=== PATIENT | female | born 1975 | race Caucasian/White ===

== ENCOUNTER → 2022-12-08 | Day surgery (SDC) | payer OTHER ==
[~2022-12-08] MED LIST: AMLODIPINE BESY10 MG PO; FENTANYL CITRATE/PF 100MCG/2 ML INJ ONE; HYOSCYAMINE SULFATE 0.5 MG/ML INJ ONE; LIDOCAINE HCL 2% LOCAL INJ 5 ML SDV VIAL INJ ONE; LOSARTAN POTAS100 MG PO; METFORMIN HCL500 M2 PO; MIDAZOLAM HCL 2 MG/2 ML VIAL ONE
[2022-12-08 10:50] VITALS: BP 118/88
== END | disposition home or self-care (01) ==
LOC: OR 08:28
PROVIDERS: ATTEND Internal Medicine Gastroenterology
DX: K63.89 Other specified diseases of intestine (principal); K62.1 Rectal polyp; K64.8 Other hemorrhoids; Z98.84 Bariatric surgery status; Z71.3 Dietary counseling and surveillance; I10 Essential (primary) hypertension; Z71.89 Other specified counseling; E78.00 Pure hypercholesterolemia, unspecified; E11.9 Type 2 diabetes mellitus without complications; Z01.810 Encounter for preprocedural cardiovascular examination; Z79.84 Long term (current) use of oral hypoglycemic drugs; Z79.899 Other long term (current) drug therapy; Z68.41 Body mass index [BMI] 40.0-44.9, adult
CPT/HCPCS: 36415; 45380; 81025; 82948; 93005; J1980; J2001; J2250; J3010; 45378

== ENCOUNTER 2023-03-04 08:35 | Emergency (ER) | payer OTHER ==
[~2023-03-04] VITALS: Ht 149.9 cm; Wt 92.5 kg
[~2023-03-04 08:35] MED LIST changes: -FENTANYL CITRATE/PF 100MCG/2 ML INJ ONE; -HYOSCYAMINE SULFATE 0.5 MG/ML INJ ONE; -LIDOCAINE HCL 2% LOCAL INJ 5 ML SDV VIAL INJ ONE; -MIDAZOLAM HCL 2 MG/2 ML VIAL ONE
[2023-03-04] MEDS ORDERED: METHOCARBAMOL500 MG PO (10:00)
[2023-03-04] MEDS ORDERED: BACTRIM DS TAB1 EACH PO (10:00)
[2023-03-04 10:19] VITALS: BP 151/76; PULSE 71; RESP 12; O2SAT 99
== END 2023-03-04 10:20 | disposition home or self-care (01) ==
LOC: ER 08:39
DX: M25.551 Pain in right hip (principal); L03.115 Cellulitis of right lower limb; M54.9 Dorsalgia, unspecified; I10 Essential (primary) hypertension; E11.9 Type 2 diabetes mellitus without complications; Z98.84 Bariatric surgery status
CPT/HCPCS: 93971; 99284